=== PATIENT | male | born 1945 | race African-American/Black ===

== ENCOUNTER 2022-07-28 19:19 | Observation (INO) | payer OTHER ==
[2022-07-28 19:31] VITALS: BMI 27.2
[2022-07-28 21:57] LABS: CALCIUM 9.3 mg/dL (8.5-10.1)
[2022-07-28 21:58] LABS: ALBUMIN 3.8 g/dl (3.4-5.0); BLOOD UREA NITROGEN 51.7 mg/dL (7-18); MAGNESIUM 2.2 mg/dL (1.8-2.4)
[2022-07-28 22:00] LABS: CREATININE 2.3 mg/dL (0.55-1.3)
[2022-07-28 22:01] LABS: PHOSPHOROUS 3.5 mg/dL (2.5-4.9)
[2022-07-28 22:02] LABS: ACTIVATED PTT 36.6 SECONDS (25.2-36.5); INR 1.11 (0.83-1.09); PROTHROMBIN TIME (PATIENT) 12.8 SEC (9.7-13.0)
[2022-07-28 22:03] LABS: BILIRUBIN,TOTAL 0.4 mg/dL (0.2-1); TOT PROT 7.4 g/dl (6.4-8.2)
[2022-07-28 23:12] LABS: BASO % 0.8 % (0-2.0); EOS % 0.7 % (0-4.5); HEMATOCRIT 42.3 % (35.4-49); HEMOGLOBIN 14.1 GM/dL (11.7-16.9); LYMPH % 32.5 % (8-40); MCHC 33.3 g/dl (32.0-35.9); MONO % 8.4 % (3.8-10.2); NEUT % 57.6 % (42.8-82.8); PLATELET COUNT 241 10^3/uL (134-434); RBC 5.42 M/mm3 (4.00-5.60); WHITE BLOOD COUNT 7.8 K/mm3 (4.0-10.0)
[2022-07-29] MEDS ORDERED: HEPARIN NA (PORCINE) 5,000 UNITS/ML 1ML VIAL SQ ONE (03:06)
[2022-07-29] MEDS ORDERED: LACTATED RINGERS SOLUTION 1,000 ML/1,000 ML INFUS.BAG IV SCH (03:45)
[2022-07-29] MEDS ORDERED: HEPARIN NA (PORCINE) 5,000 UNITS/ML 1ML VIAL ONE (04:32)
[2022-07-29 06:40] LABS: URINE APPEARANCE CLEAR; URINE BILIRUBIN NEGATIVE (NEGATIVE); URINE COLOR YELLOW; URINE GLUCOSE (UA) NEGATIVE (NEGATIVE); URINE KETONE NEGATIVE (NEGATIVE); URINE LEUK ESTERASE NEGATIVE (NEGATIVE); URINE NITRITE NEGATIVE (NEGATIVE); URINE PROTEIN NEGATIVE (NEGATIVE); URINE UROBILINOGEN 0.2 mg/dL (0.2-1.0)
[2022-07-29] MEDS: INSULIN SLIDING SCALE (NOVOLOG) 1 VIAL SQ SCH ×4 (07:59→22:57)
[2022-07-29 08:21] LABS: OPIATES, URI NEGATIVE (NEGATIVE); PHENCYCLIDINE,URINE NEGATIVE (NEGATIVE); URINE AMPHETAMINES NEGATIVE (NEGATIVE); URINE BARBITURATES NEGATIVE (NEGATIVE); URINE BENZODIAZEPINES NEGATIVE (NEGATIVE)
[2022-07-29 08:23] LABS: METHADONE, UR NEGATIVE (NEGATIVE)
[2022-07-29 08:25] LABS: COCAINE, UR POSITIVE (NEGATIVE)
[2022-07-29 08:49] LABS: BASO % 0.4 % (0-2.0); EOS % 1.4 % (0-4.5); HEMATOCRIT 43.2 % (35.4-49); HEMOGLOBIN 14.1 GM/dL (11.7-16.9); LYMPH % 34.5 % (8-40); MCH 25.9 pg (25.7-33.7); MCHC 32.8 g/dl (32.0-35.9); MEAN CELL VOLUME 78.9 fl (80-96); MEAN PLT VOLUME 7.9 fl (7.5-11.1); MONO % 9.4 % (3.8-10.2); NEUT % 54.3 % (42.8-82.8); PLATELET COUNT 237 10^3/uL (134-434); RBC 5.47 M/mm3 (4.00-5.60); RDW 15.6 % (11.9-15.9); WHITE BLOOD COUNT 6.3 K/mm3 (4.0-10.0)
[2022-07-29 09:27] LABS: ALBUMIN 3.8 g/dl (3.4-5.0)
[2022-07-29 09:28] LABS: BILIRUBIN,TOTAL 0.6 mg/dL (0.2-1); MAGNESIUM 2.2 mg/dL (1.8-2.4)
[2022-07-29 09:29] LABS: TOT PROT 7.2 g/dl (6.4-8.2)
[2022-07-29 09:30] LABS: CREATININE 2.3 mg/dL (0.55-1.3); PHOSPHOROUS 3.7 mg/dL (2.5-4.9)
[2022-07-29 09:39] LABS: CALCIUM 9.5 mg/dL (8.5-10.1)
[2022-07-29] MEDS ORDERED: ACETAMINOPHEN 325 MG TABLET (FP) ONE (12:26)
[2022-07-29] MEDS: ACETAMINOPHEN 325 MG TABLET (FP) PO PRN (13:19)
[2022-07-29] MEDS ORDERED: GABAPENTIN 100 MG CAPSULE ONE ×2 (15:07→22:14)
[2022-07-29] MEDS: GABAPENTIN 100 MG CAPSULE PO SCH ×2 (15:12→22:31)
[2022-07-29] MEDS ORDERED: traMADol HCL 50 MG TABLET PO ONE (20:59)
[2022-07-29] MEDS ORDERED: traMADol HCL 50 MG TABLET ONE (21:08)
[2022-07-30] MEDS ORDERED: ACETAMINOPHEN 325 MG TABLET (FP) ONE ×2 (01:16→10:34)
[2022-07-30] MEDS: ACETAMINOPHEN 325 MG TABLET (FP) PO PRN ×2 (01:20→10:35)
[2022-07-30] MEDS ORDERED: GABAPENTIN 100 MG CAPSULE ONE (06:26)
[2022-07-30] MEDS: GABAPENTIN 100 MG CAPSULE PO SCH (06:29)
[2022-07-30 07:04] VITALS: RESP 20; TEMP 97.8
[2022-07-30] MEDS: INSULIN SLIDING SCALE (NOVOLOG) 1 VIAL SQ SCH ×2 (08:07→11:05)
[2022-07-30 10:19] LABS: BASO % 0.4 % (0-2.0); HEMATOCRIT 40.1 % (35.4-49); HEMOGLOBIN 13.5 GM/dL (11.7-16.9); MCHC 33.8 g/dl (32.0-35.9); MEAN CELL VOLUME 77.1 fl (80-96); MEAN PLT VOLUME 8.2 fl (7.5-11.1); MONO % 11.2 % (3.8-10.2); NEUT % 52.4 % (42.8-82.8); PLATELET COUNT 232 10^3/uL (134-434); RBC 5.19 M/mm3 (4.00-5.60); RDW 15.7 % (11.9-15.9); WHITE BLOOD COUNT 6.4 K/mm3 (4.0-10.0)
[2022-07-30 10:58] LABS: CALCIUM 9.8 mg/dL (8.5-10.1)
[2022-07-30 10:59] LABS: BLOOD UREA NITROGEN 43.6 mg/dL (7-18)
[2022-07-30 11:02] LABS: CREATININE 1.7 mg/dL (0.55-1.3)
[2022-07-30 18:27] VITALS: BP 125/77; PULSE 103
== END 2022-07-30 18:48 | disposition home or self-care (01) ==
LOC: JER 19:19 → INTOOBSV 07-29 00:17 → UNDOADMOB 07-29 00:17 → JERBED 07-29 00:17
PROVIDERS: ADMIT Internal Medicine
PROC: 3E023GC Introduction of Other Therapeutic Substance into Muscle, Percutaneous Approach (ICD-10-PCS; principal; 2022-07-29)
PROC: 3E0337Z Introduction of Electrolytic and Water Balance Substance into Peripheral Vein, Percutaneous Approach (ICD-10-PCS; 2022-07-29)
DX: R55 Syncope and collapse (principal); N17.9 Acute kidney failure, unspecified; G89.29 Other chronic pain; M54.50 Low back pain, unspecified; F19.10 Other psychoactive substance abuse, uncomplicated; E78.5 Hyperlipidemia, unspecified; F43.10 Post-traumatic stress disorder, unspecified; F32.A Depression, unspecified; E11.22 Type 2 diabetes mellitus with diabetic chronic kidney disease; I12.9 Hypertensive chronic kidney disease with stage 1 through stage 4 chronic kidney disease, or unspecified chronic kidney disease; N18.9 Chronic kidney disease, unspecified; Z29.8 Encounter for other specified prophylactic measures
CPT/HCPCS: 0241U-QW; 36415; 70450-TC; 71045-TC-FY; 72125-TC; 72131-TC; 72170-TC-FY; 76775-TC; 80048; 80053; 80061; 80307; 81003; 82962; 83036; 83735; 84100; 84443; 84484; 85025; 85610; 85730; 87086; 93005; 93010; 93306-TC; 96360; 96372; 97116-GP; 97161-GP; 99285-25; G0378; J1644